=== PATIENT | male | born 1950 | race Caucasian/White ===

== ENCOUNTER 2017-04-15 09:38 | Emergency (ER) | payer OTHER, MEDICARE ==
[2017-04-15 10:05] LABS: #Eosinphils 0.1 thou/uL (0.0-0.7); #Lymphocytes 1.2 thou/uL (1.20-3.40); #Monocytes 0.7 thou/uL (0.11-0.59); %Basophils 0.2 % (0.0-1.0); %Eosinophils 0.4 % (0.0-10.0); %Lymphocytes 9.9 % (21.0-51.0); %Monocytes 5.6 % (0.0-10.0); Hematocrit 50.2 % (42.0-52.0); Mean Platelet Volume 7.1 fL (7.4-10.4); Red Blood Cell (RBC) Count 5.29 mill/uL (4.70-6.10)
[2017-04-15 10:29] LABS: ALT (SGPT) 240 U/L (8-55); AST (SGOT) 335 U/L (5-34); Alkaline Phosphatase 82 U/L (40-150); Anion Gap 18 mmol/L (10-20); BUN (Urea Nitrogen) 20 mg/dL (8.4-25.7); CK (CPK) 67 U/L (30-200); Calc. Creatinine Clearance 0 mL/min (70-130); Calcium 9.6 mg/dL (7.8-10.44); Carbon Dioxide 24 mmol/L (23-31); Chloride 100 mmol/L (98-107); Estimated GFR-MDRD 77; Globulin 3.9 g/dL (2.4-3.5); Protein, Total 8.2 g/dL (5.8-8.1)
[2017-04-15 10:34] LABS: Troponin I Less than 0.010 ng/mL (< 0.028)
--- NOTE | 2017-04-15 10:40 | RAD ---
CHEST 1 VIEW: HISTORY: A 66-year-old male with right-sided chest pain which began this morning. FINDINGS: Extensive bilateral pleural calcified plaques with some pleural thickening. Heart size is within up per range of normal limits. There is some blunting of both costophrenic angles which may just be re lated to the chronic pleural changes. No confluent pneumonia or overt edema. Arthrosis changes of both shoulders, particularly the left. IMPRESSION: Significant bilateral pleural thickening and pleural calcification changes. No pneumonia, edema, or other acute process. POS: [facility]
[2017-04-15] MEDS ORDERED: Ondansetron HCl/PF 4 MG/2 ML Vial ONE (10:41)
[2017-04-15] MEDS ORDERED: Morphine 10 MG/ML VIAL ONE (10:42)
[2017-04-15 11:08] LABS: Lactic Acid - Sepsis 2.4 mmol/L (0.5-2.2)
[2017-04-15] MEDS ORDERED: hydrALAZINE 20 MG/ML VIAL ONE (12:57)
--- NOTE | 2017-04-15 13:05 | CT ---
CT OF THE ABDOMEN AND PELVIS WITH CONTRAST: COMPARISON: None. HISTORY: Right-sided abdominal pain radiating to the right anterior chest. Dyspnea on exertion. TECHNIQUE: Multiple contiguous axial images were obtained in a CT of the abdomen and pelvis with contrast. P.o . contrast was administered. Coronal reformats were performed. FINDINGS: There is hyperdense material in the gallbladder neck which could potentially represent gallstones. The gallbladder is distended without stranding changes surrounding the gallbladder. No free air, fr ee fluid, or stranding changes are seen in the abdomen or pelvis. The liver, kidneys, adrenal glands, spleen, and pancreas are unremarkable. There are scattered dive rticula in the colon. The small bowel and appendix are unremarkable. No abdominal or pelvic lymphadenopathy are seen. Atherosclerotic calcifications are seen in the aor ta. Degenerative changes are seen in the spine. There are calcified bilateral pleural plaques in the abad ng bases which are likely secondary to prior asbestos exposure. IMPRESSION: 1. Distended gallbladder with hyperdense material in the gallbladder neck. This could represent ga llstones. A right upper quadrant ultrasound is recommended if patient has elevated liver function t ests. 2. Diverticulosis. 3. 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 POS: [facility]
--- NOTE | 2017-04-15 14:50 | ULT ---
GALLBLADDER ULTRASOUND: History: Elevated LFTs and right sided abdominal pain. FINDINGS: There is course increased liver echogenicity, evidence for fatty change, with minimal hepatomegaly. Several gallstones are noted with shadow and are mobile. No gallbladder wall thickening. Common bile duct is 0.5 cm. Visualized pancreas and right kidney are unremarkable. IMPRESSION: Multiple cholelithiasis without ductal dilatation. Coarse increased liver echogenicity evidence for fatty change. POS: [facility]
[2017-04-15] MEDS ORDERED: Iopamidol 300 61% 50 ML VIAL FS ONE (16:05)
[2017-04-15] MEDS ORDERED: ISOVUE-370 76%-LOCM 1 ML ONE (16:06)
--- NOTE | 2017-06-02 12:33 | EKG ---
Test Reason : Blood Pressure : / mmHG Vent. Rate : 069 BPM Atrial Rate : 069 BPM P-R Int : 220 ms QRS Dur : 092 ms QT Int : 432 ms P-R-T Axes : 098 031 027 degrees QTc Int : 462 ms Sinus rhythm with 1st degree A-V block Nospecific ST-T segment abnormalities Otherwise normal ECG Confirmed by JUNE GUERIN ([id number]), book or script editor GOPAL SHANNON ([id number] on 06/02/2017 12:32:41 PM Referred By: Confirmed By:JUNE GUERIN
== END 2017-04-15 15:25 | disposition home or self-care (01) ==
LOC: ERS 09:38
DX: B18.2 Chronic viral hepatitis C (principal); K80.50 Calculus of bile duct without cholangitis or cholecystitis without obstruction; E78.5 Hyperlipidemia, unspecified; I10 Essential (primary) hypertension; K21.9 Gastro-esophageal reflux disease without esophagitis; Z87.891 Personal history of nicotine dependence; Z79.82 Long term (current) use of aspirin; Z79.899 Other long term (current) drug therapy
CPT/HCPCS: 36415; 71010; 74177; 76705; 80053; 82550; 82553; 83605; 83690; 84484; 85025; 93005; 94760; 96361; 96374; 96375; J0360; J2270; J2405

== ENCOUNTER 2017-04-17 12:50 | Inpatient (IN) | payer OTHER, MEDICARE ==
[2017-04-17] MEDS ORDERED: Ondansetron HCl/PF 4 MG/2 ML Vial IVP PRN (13:40)
[2017-04-17] MEDS ORDERED: Morphine 10 MG/ML VIAL SLOW IVP PRN (13:44)
[2017-04-17 14:20] VITALS: BMI 31.3
[2017-04-17] MEDS: Pantoprazole 40 MG VIAL IVP SCH (14:34)
[2017-04-17] MEDS: D5 1/2 NS w/20 mEq KCL 1,000 ML IV SCH ×2 (14:35→23:49)
--- NOTE | 2017-04-17 17:01 | CON ---
DATE OF CONSULTATION: 04/17/2017 REQUESTING PHYSICIAN: Carlos Walker M.D. REASON FOR CONSULTATION: Obstructive jaundice. HISTORY OF PRESENT ILLNESS: Manas Blue is a 66-year-old gentleman seen by my GI colleague, Dr. Po Winchester. He has a known history of chronic hepatitis C genotype 2 B with no prior treatment, evidentl y had a liver biopsy back in 2003 showing only stage I fibrosis. Over the past 3 days, the patient has had waxing and waning often severe pain in the right upper quadrant associated with nausea and v omiting. He went to the emergency department a couple of days ago and was found to have some LFT el evation with AST 335, ALT 240, and total bilirubin 2.0. Ultrasound at that time showed cholelithias is, but normal common bile duct of [address] scan showed distended gallbladder with stones in th e neck of the gallbladder. He was seen yesterday in our clinic by our Physician Mop Maker and due t o the elevated LFTs and ultrasound findings, was referred to General Surgery. He met Dr. Walker to day, quite symptomatic this morning having vomiting and worsening abdominal pain. Repeat labs today showed marked interval increase in total bilirubin all the way up to 10.1 with AST going up to 290. He was therefore admitted to the hospital with plan for cholecystectomy. We are consulted for con sideration of preoperative ERCP, given the high likelihood of common bile duct stone. Currently, th e patient is feeling a bit better, no vomiting since this morning. Pain is fairly well controlled w ith morphine. REVIEW OF SYSTEMS: Full review of systems including constitutional, head, eyes, ears, nose, throat, GI, , cardiovascular, respiratory, musculoskeletal, and neurologic systems is negative except as noted in the HPI. PAST MEDICAL HISTORY: Hepatitis C genotype 2 B. No prior treatment, hypertension, hyperlipidemia, and arthritis. ALLERGIES: No known drug allergies. OUTPATIENT MEDICATIONS: Amlodipine, hydrochlorothiazide, bisoprolol. INPATIENT MEDICATIONS: Zosyn IV, morphine p.r.n., Zofran p.r.n., Protonix 40 mg IV daily. SOCIAL HISTORY: The patient is a former smoker. He does drink beer heavily about a 12 pack per wee k. No drug use. FAMILY HISTORY: Noncontributory. PHYSICAL EXAMINATION: VITAL SIGNS: Temperature 98.1, pulse 61, blood pressure 161/71, 98% oxygen saturation on room air. GENERAL: A 66-year-old gentleman lying in bed comfortably in no acute distress. SKIN: He has some mild jaundice, no rash visible or palpable. EYES: Mild scleral icterus. Extraocular movements intact. ENT: Mucous membranes moist, no oral lesions. LYMPH: No submandibular, supraclavicular lymphadenopathy. THYROID: Nontender to palpation. HEART: Regular rate and rhythm. LUNGS: Clear to auscultation bilaterally. ABDOMEN: Bowel sounds present, soft, some tenderness to palpation in the right upper quadrant. No guarding or rebound tenderness. EXTREMITIES: No peripheral edema. VESSELS: Radial pulses 2+ bilaterally. NEUROLOGICAL: Cranial nerves II-XII intact bilaterally. No focal deficits. LABORATORY STUDIES: Total bilirubin up to 10.1, up from 2.0 just 2 days ago. Alkaline phosphatase 105, AST 105, ALT 290 up from 240 two days ago. Albumin 4.0, lactic acid 1.8, lipase 16. WBC 12, h emoglobin 17.3, platelets 224. IMAGING STUDIES: Abdominal ultrasound from 2 days ago showed cholelithiasis with common bile duct 5 mm. No gallbladder wall thickening. CT of the abdomen and pelvis also 2 days ago demonstrated dis tended gallbladder with what appeared to be gallstones in the gallbladder neck. ASSESSMENT AND PLAN: 1. Obstructive jaundice. 2. Cholelithiasis. 3. Right upper quadrant pain. The patient's sudden interval increase in total bilirubin and charac teristic symptoms yield a high likelihood for common bile duct stone. Cholecystectomy is planned. Preoperative ERCP is certainly reasonable to clear the common bile duct prior to surgery. Currently , the patient's symptoms are well controlled. We will plan on ERCP tomorrow. I discussed the proce dure including risks and benefits in detail with the patient, including risk of post-ERCP pancreatit is. The patient desires to proceed. Thank you for the consultation. Please call with questions or concerns.
[2017-04-17] MEDS: Piperacillin/Tazobactam 3.375 GM, Admixture Fee 1 EACH in Sodium Chloride 0.9% 100 ML IVPB SCH ×2 (18:57→23:49)
[2017-04-17] MEDS: Morphine PF 1 MG/ML SYR IVP PRN (21:30)
--- NOTE | 2017-04-18 03:24 | HP ---
CHIEF COMPLAINT: Abdominal pain. HISTORY OF PRESENT ILLNESS: Mr. 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 He has been followed by Dr. Po Winchester for the past 20 years for hepatitis C, which is clinically quiescent. He has no history of cirrhosis or liver failure. He had sudden onset of severe right upper quadrant pain radiating to his back and also to the left upper quadrant early Sunday morning. This pain has brought him into the emergency room as well as his doctor's offices without ever completely resolving. He states that the pain has gotten somewhat better, but he has episodes where the amount of pain increases rather dramatically. He went to see Dr. Winchester 2 days ago and had labs drawn at which point he was noted to have increased LFTs. Repeat labs were ordered for today and these have increased further. The patient denies nausea or vomiting. He cannot identify anything which makes the pain better or worse. It seems to come and go independent of eating, activity, position, or time of day. He has not had much of an appetite since the onset of his symptoms, which is quite atypical. He denies any fevers or chills. An ultrasound done in the emergency room was positive for gallstones , but no ductal dilatation was noted. He did have coarse echotexture to his liver suggestive of fatty change. A CT scan was also done on the and this did not show any overt signs of cirrhosis and there was no stranding around the gallbladder, although it was noted to be distended. PAST MEDICAL HISTORY: Hepatitis C, untreated for over 20 years. He also has a history of gastric ulcers and ongoing alcohol use of 2 or 3 beers per day, and hypertension. PAST SURGICAL HISTORY: He has had some orthopedic surgeries, but no abdominal operations. SOCIAL HISTORY: The patient used to chew, but has never smoked tobacco. He has not had any illicit drug use, but does continue to drink alcohol. OUTPATIENT MEDICATIONS: Include bisoprolol/hydrochlorothiazide 10/6.25 mg p.o. daily, amlodipine 5 mg p.o. daily, pantoprazole 40 mg p.o. daily, aspirin daily , and hydrochlorothiazide 12.5 mg p.o. daily. REVIEW OF SYSTEMS: Ten system review of systems is negative except per HPI and the following. The patient does report that his stools have been black in color and his urine has been dark yellow, but seems a little boxer operator in color today. PHYSICAL EXAMINATION: GENERAL: The patient is in no acute distress. He is not flushed or toxic in appearance. He does have notable jaundice and icterus. HEENT: Unremarkable. NECK: Supple, without lymphadenopathy or thyroid nodules. HEART: Regular in its rate and rhythm without murmurs, rubs or gallops. LUNGS: Clear to auscultation bilaterally. ABDOMEN: Soft and nondistended. He is mildly tender to palpation in the right lower quadrant, but quite tender to palpation in the right upper quadrant. He does not exhibit rigidity, rebound or guarding, no palpable masses or hernias. He does have a reducible umbilical hernia. No fluid wave or abdominal distention. EXTREMITIES: Warm and well perfused. He has minimal ankle edema. NEUROLOGIC: No focal deficits. PSYCHIATRIC: Alert, oriented, and appropriate. SKIN: Multiple actinic keratoses on his forearms. LABORATORY DATA: His bilirubin was 2 on the 12th and has gone up to 10 today. AST and ALT are mildly elevated at 105 and 390, which was not too different than on the 12th. CBC was not repeated today, but his white count was mildly elevated on the 12th at 12 with a left shift. His hematocrit at that time was 50. ASSESSMENT: Cholelithiasis and likely choledocholithiasis. The patient has rapidly rising bilirubin and development of jaundice and icterus with abdominal pain and gallstones, which is very suggestive of an obstructed common bile duct. He does have a history of hepatitis C, but no history of cirrhosis. I have ordered repeat labs for the morning including coags and I have discussed this case with Gastroenterology. I feel that he requires an ERCP and after that can proceed with laparoscopic cholecystectomy. I am starting him on some prophylactic antibiotics given his bile duct obstruction and right upper quadrant tenderness. He does not clinically have any evidence of cholangitis. I discussed the patient's diagnosis and recommended treatment plan with him and his and they are in agreement with this. All their questions were answered. The inherent risks of laparoscopic cholecystectomy were discussed. These include but are not limited to bleeding, infection, risks of anesthesia, damage to nearby structures including bowel, liver and bile duct, need for additional procedures, and need for open surgery. They understands and accept these risks and wishes to proceed. We also briefly went over the procedure ERCP and its inherent risks and they are in agreement with this as well. I have written orders to the hospital with medications for pain, nausea, and prophylactic antibiotics. He will be made n.p.o., but I will likely continue his home medications for the most part, keeping an eye on his blood pressure. LUCINDA
[2017-04-18] MEDS: Piperacillin/Tazobactam 3.375 GM, Admixture Fee 1 EACH in Sodium Chloride 0.9% 100 ML IVPB SCH ×4 (05:06→23:32)
[2017-04-18 05:29] LABS: PTT 25.2 SEC (22.9-36.1)
[2017-04-18 05:48] LABS: Hematocrit 46.1 % (42.0-52.0); Mean Platelet Volume 7.4 fL (7.4-10.4); Neutrophil 67 % (42-75); Reactive Lymphocytes 1 % (0-10); Red Blood Cell (RBC) Count 4.71 mill/uL (4.70-6.10); White Blood Cell (WBC) Count 5.8 thou/uL (4.8-10.8)
[2017-04-18 05:57] LABS: ALT (SGPT) 206 U/L (8-55); AST (SGOT) 76 U/L (5-34); Alkaline Phosphatase 84 U/L (40-150); Anion Gap 11 mmol/L (10-20); BUN (Urea Nitrogen) 11 mg/dL (8.4-25.7); Bilirubin, Total 4.8 mg/dL (0.2-1.2); Calc. Creatinine Clearance 111 mL/min (70-130); Calcium 9.1 mg/dL (7.8-10.44); Carbon Dioxide 27 mmol/L (23-31); Chloride 102 mmol/L (98-107); Estimated GFR-MDRD 90; Globulin 3.5 g/dL (2.4-3.5); Lipase 5 U/L (8-78); Protein, Total 7.2 g/dL (5.8-8.1)
[2017-04-18] MEDS: Bisoprolol Fumarate/HCTZ 10 mg/6.25 mg Tablet PO SCH (06:48)
[2017-04-18] MEDS: D5 1/2 NS w/20 mEq KCL 1,000 ML IV SCH ×3 (06:49→23:32)
[2017-04-18] MEDS ORDERED: Fentanyl 100 MCG/2 ML VIAL ONE ×4 (13:37→14:31)
[2017-04-18] MEDS ORDERED: Iothalamate Meglumine 60% 50 ML VIAL FS ONE (14:23)
[2017-04-18] MEDS ORDERED: Midazolam HCl 2 mg/2 ml Vial ONE (14:31)
[2017-04-18] MEDS ORDERED: Ondansetron HCl/PF 4 MG/2 ML Vial ONE (14:49)
[2017-04-18] MEDS ORDERED: ePHEDrine/0.9% NaCl/PF SYRINGE 50 mg/10 ml ONE (14:49)
[2017-04-18] MEDS ORDERED: Succinylcholine Chloride 20 MG/ML 10 ml SYRINGE FS ONE (14:49)
[2017-04-18] MEDS ORDERED: Lidocaine 1% PF 5 ML VIAL ONE (14:49)
[2017-04-18] MEDS ORDERED: Propofol 200 MG/20 ML VIAL ONE (14:49)
[2017-04-18] MEDS ORDERED: Dexamethasone 20 MG/5 ML VIAL ONE (14:49)
[2017-04-18] MEDS: Pantoprazole 40 MG VIAL IVP SCH (15:04)
--- NOTE | 2017-04-18 15:45 | RAD ---
ERCP: COMPARISON: Gallbladder/right upper quadrant from 04/15/2017. FINDINGS: A single image of the abdomen demonstrates canalization of the common bile duct with partial filling of the common bile duct. The intrahepatic biliary system is not visible on this single exam. No def inite filling defect is seen on this examination. There is likely visualization of the balloon in th e distal common bile duct. POS: [facility]
[2017-04-18] MEDS: Morphine PF 1 MG/ML SYR IVP PRN ×2 (17:29→19:15)
--- NOTE | 2017-04-18 17:29 | OP ---
PREOPERATIVE DIAGNOSIS: Obstructive jaundice. PROCEDURE: After informed consent was obtained, the patient placed in the left lateral decubitus pos ition. Anesthesia was administered per the Anesthesia Department. Side-viewing endoscope was insert ed into the esophagus under direct visualization with ease and passed to the second portion of the du odenum with ease. Second portion of the duodenum was normal. The duodenal bulb was normal. No muco ade abnormalities were noted. A taper tip papillotome was inserted in the common doubt bile duct and there is small filling defect was noted. A sphincterotomy was performed and a 9 mm balloon and 12 m m balloon were used to sweep the duct. Occlusion cholangiogram revealed no filling defects. ASSESSMENT: Choledocholithiasis - status post sphincterotomy and stone extraction. RECOMMENDATIONS: Repeat LFTs.
[2017-04-18] MEDS ORDERED: MORPHINE 10 MG/ML SYRINGE IV PRN (17:37)
[2017-04-19 05:08] LABS: #Lymphocytes 1.1 thou/uL (1.20-3.40); #Monocytes 0.5 thou/uL (0.11-0.59); #Neutrophils 6.8 thou/uL (1.40-6.50); %Basophils 0.2 % (0.0-1.0); %Eosinophils 0.1 % (0.0-10.0); %Lymphocytes 13.3 % (21.0-51.0); %Monocytes 6.2 % (0.0-10.0); Hematocrit 46.2 % (42.0-52.0); Mean Platelet Volume 7.5 fL (7.4-10.4); Red Blood Cell (RBC) Count 4.76 mill/uL (4.70-6.10); White Blood Cell (WBC) Count 8.5 thou/uL (4.8-10.8)
[2017-04-19 05:20] LABS: ALT (SGPT) 196 U/L (8-55); AST (SGOT) 86 U/L (5-34); Alkaline Phosphatase 84 U/L (40-150); Anion Gap 10 mmol/L (10-20); BUN (Urea Nitrogen) 9 mg/dL (8.4-25.7); Bilirubin, Total 4.3 mg/dL (0.2-1.2); Calc. Creatinine Clearance 117 mL/min (70-130); Calcium 9.2 mg/dL (7.8-10.44); Carbon Dioxide 25 mmol/L (23-31); Chloride 104 mmol/L (98-107); Estimated GFR-MDRD Greater than 90; Globulin 3.4 g/dL (2.4-3.5); Lipase 9 U/L (8-78); Protein, Total 7.1 g/dL (5.8-8.1)
[2017-04-19] MEDS: Piperacillin/Tazobactam 3.375 GM, Admixture Fee 1 EACH in Sodium Chloride 0.9% 100 ML IVPB SCH ×2 (05:51→14:12)
[2017-04-19] MEDS: D5 1/2 NS w/20 mEq KCL 1,000 ML IV SCH (05:51)
[2017-04-19 08:48] VITALS: TEMP 98.4
[2017-04-19] MEDS: Bisoprolol Fumarate/HCTZ 10 mg/6.25 mg Tablet PO SCH (09:19)
[2017-04-19] MEDS ORDERED: Bupivacaine/Epinephrine 0.25% 30 ML VIAL ONE (10:20)
[2017-04-19] MEDS ORDERED: Fentanyl 100 MCG/2 ML VIAL ONE (10:22)
[2017-04-19] MEDS ORDERED: Propofol 200 MG/20 ML VIAL ONE (10:45)
[2017-04-19] MEDS ORDERED: Lidocaine 1% PF 5 ML VIAL ONE (10:45)
[2017-04-19] MEDS ORDERED: Metoclopramide HCl 10 MG/2 ML VIAL ONE (10:45)
[2017-04-19] MEDS ORDERED: Glycopyrrolate 0.2 MG/ML 5 ML SYRINGE ONE (10:45)
[2017-04-19] MEDS ORDERED: Ketorolac Tromethamine 30 MG/ML VIAL ONE (10:45)
[2017-04-19] MEDS ORDERED: ePHEDrine/0.9% NaCl/PF SYRINGE 50 mg/10 ml ONE (10:45)
[2017-04-19] MEDS ORDERED: Dexamethasone 20 MG/5 ML VIAL ONE (10:45)
[2017-04-19] MEDS ORDERED: Ondansetron HCl/PF 4 MG/2 ML Vial ONE (10:45)
[2017-04-19] MEDS ORDERED: diphenhydrAMINE 50 MG/ML VIAL ONE (10:45)
[2017-04-19] MEDS ORDERED: Promethazine HCl 25 MG/ML VIAL SLOW IVP PRN (13:09)
[2017-04-19] MEDS ORDERED: Ondansetron HCl/PF 4 MG/2 ML Vial IVP PRN (13:09)
[2017-04-19] MEDS ORDERED: Promethazine HCl 25 MG/ML VIAL IM PRN (13:09)
[2017-04-19] MEDS ORDERED: traMADol HCl 50 MG TAB PO PRN ×2 (14:31)
[2017-04-19] MEDS ORDERED: HYDROcodone/Acetaminophen 10/325 mg Tablet PO PRN ×2 (14:32)
[2017-04-19] MEDS: Pantoprazole 40 MG VIAL IVP SCH (14:37)
[2017-04-19 16:34] VITALS: BP 178/78
--- NOTE | 2017-04-20 13:38 | DIS ---
DATE OF ADMISSION: 04/17/2017 DATE OF DISCHARGE: 04/19/2017 PROCEDURES: ERCP by Dr. Cardona on 04/18/2017 and laparoscopic cholecystectomy with liver biopsy and re pair of umbilical hernia on 04/19/2017. FINAL DIAGNOSES: 1. Hepatitis C. 2. Choledocholithiasis. 3. Chronic cholecystitis and cholelithiasis. 4. Umbilical hernia. HISTORY: Mr. Blue is a 66-year-old man with longstanding hepatitis C who presented to his gastroente rologist with acute onset of right upper quadrant pain, nausea, and vomiting. He was found to have g allstones on ultrasound and was referred to General Surgery. On the day that I saw him, he was noted to have very elevated LFTs, so I admitted him to the hospital with Gastroenterology consultation for ERCP. He underwent ERCP without event and the following day underwent laparoscopic cholecystectomy. Due to his longstanding history of hepatitis C and an enlarged liver, a liver biopsy was also done and he also underwent incidental repair of an umbilical hernia. Postoperatively, he recovered well a nd was discharged home later that same day. He is to follow up in the General Surgery Clinic in 2 we eks' time. He was instructed to avoid heavy lifting for 2 weeks and to stay on a low fat diet. Alco hol cessation was also recommended.
--- NOTE | 2017-04-20 22:18 | PDOC.OP ---
Operative Note - Operative Note Operative Note: PROCEDURE: Laparoscopic cholecystectomy and liver biopsy and repair of umbilical hernia SURGEON: Carlos Walker M.D. DATE OF PROCEDURE: 04/19/2017 PREOPERATIVE DIAGNOSIS: Cholelithiasis and cholecystitis and umbilical hernia, history of hepatitis C POSTOPERATIVE DIAGNOSIS: Cholelithiasis and cholecystitis and umbilical hernia, history of hepatitis C HISTORY: Patient presented with obstructive jaundice and gallstones on ultrasound. He underwent ERCP and stone extraction on 04/18/2017 with improvement in his abdominal pain and now presents for laparoscopic cholecystectomy. FINDINGS: White walled gallbladder. Enlarged and stiff liver which was difficult to retract necessitating use of the 30 degree port. Very small umbilical fascial defect containing preperitoneal fat only. PROCEDURE IN DETAIL: After informed consent was obtained and appropriate preoperative antibiotics were administered, the patient was taken to the operating room and placed in the supine position and general endotracheal anesthesia was administered. The stomach was decompressed with an OG tube and the abdomen was prepped and draped in standard sterile fashion. Local anesthesia was infused to the skin and subcutaneous tissues at the umbilical level. A transverse skin incision was made. Dissection was carried down to the umbilical hernia which was dissected free of the overlying skin and surrounding soft tissues. This was traced down to the fascial defect which was under a centimeter in size. The hernia contained preperitoneal fat only which was excised and discarded. A 5 mm trocar was placed through the fascial defect into the abdominal cavity and carbon dioxide gas insufflated to an intra- abdominal pressure of 15 which the patient tolerated well. The abdominal cavity was carefully examined. There was no evidence of trocar injury. Local anesthesia was infused to the skin and subcutaneous tissues at the epigastric, right upper quadrant, and right lateral abdominal sites and trocars were placed under direct vision of the laparoscope. The fundus of the gallbladder was grasped and retracted superiorly but due to the stiff and enlarged liver the infundibulum could not be adequately visualized. A 30 degree scope was obtained with improved visualization of this area.. The infundibulum was grasped and retracted laterally. The serosa was stripped inferiorly at the level of the neck of the gallbladder exposing the cystic duct and artery which were traced clearly to their insertion in the gallbladder. Critical view of safety was obtained and the cystic duct and artery were clipped and divided between clips. The gallbladder was then dissected free of the gallbladder bed using hook electrocautery. Prior to complete removal of the gallbladder from the gallbladder bed, the area of the cystic duct and artery stumps was examined. The clips were in good position completely across these structures and there was no bleeding and no leakage of bile. The gallbladder was then placed into an EndoCatch bag and drawn out through the epigastric incision. The epigastric trocar was replaced and the operative site easily irrigated to clear. There was no significant bleeding or spillage of bile. A wedge biopsy of the edge of the liver was then performed using laparoscopic sutures and the biopsy site cauterized and hemostasis verified. The epigastric trocar was removed and the fascia closed under direct laparoscopic vision with a 0 Vicryl suture on a GraNee needle in a [id number] manner with excellent technical result. The right upper quadrant and right lateral abdominal trocars were removed and hemostasis verified. Carbon dioxide gas was allowed to desufflate through the umbilical trocar which was then removed. The umbilical fascia was closed under direct vision with 0 Vicryl sutures with excellent technical result. Additional local anesthesia was infused for postoperative pain management. The skin incisions were closed with 4-0 subcuticular Monocryl sutures and Dermabond dressings were placed. The patient was extubated and taken to the recovery room in good condition. There were no complications. ESTIMATED BLOOD LOSS: Minimal. SPECIMEN : Gallbladder and contents, liver biopsy.
== END 2017-04-19 15:33 | disposition home or self-care (01) | DRG 418 ==
LOC: 3SE 12:50
PROVIDERS: ADMIT Surgery; ATTEND Surgery
PROC: 0F798ZZ Dilation of Common Bile Duct, Via Natural or Artificial Opening Endoscopic (ICD-10-PCS; principal; 2017-04-18)
PROC: 0FC98ZZ Extirpation of Matter from Common Bile Duct, Via Natural or Artificial Opening Endoscopic (ICD-10-PCS; 2017-04-18)
PROC: 0FT44ZZ Resection of Gallbladder, Percutaneous Endoscopic Approach (ICD-10-PCS; 2017-04-19)
PROC: 0WQF0ZZ Repair Abdominal Wall, Open Approach (ICD-10-PCS; 2017-04-19)
PROC: 0FB04ZX Excision of Liver, Percutaneous Endoscopic Approach, Diagnostic (ICD-10-PCS; 2017-04-19)
DX: K80.70 Calculus of gallbladder and bile duct without cholecystitis without obstruction (principal); K80.18 Calculus of gallbladder with other cholecystitis without obstruction; I10 Essential (primary) hypertension; K80.71 Calculus of gallbladder and bile duct without cholecystitis with obstruction; B19.20 Unspecified viral hepatitis C without hepatic coma; F10.10 Alcohol abuse, uncomplicated; E78.5 Hyperlipidemia, unspecified; M19.90 Unspecified osteoarthritis, unspecified site; Z87.891 Personal history of nicotine dependence; K42.9 Umbilical hernia without obstruction or gangrene
CPT/HCPCS: 36415; 71010; 74177; 74330; 76705; 80053; 82550; 82553; 83605; 83690; 84484; 85007; 85025; 85027; 85610; 85730; 88304; 88307; 88313; 93005; 94760; 96361; 96374; 96375; A4216; C9113; J0131; J0360; J1100; J1200; J1885; J2001; J2250; J2270; J2274; J2405; J2543; J2704; J2765; J3010; J7050; Q9961

== ENCOUNTER 2020-10-29 14:49 | Outpatient (CLI) | payer MEDICARE | END 2020-10-29 14:50 | disposition home or self-care (01) | LOC: BICCT 14:49 | PROVIDERS: ATTEND Surgery | DX: M48.02 Spinal stenosis, cervical region (principal); M47.812 Spondylosis without myelopathy or radiculopathy, cervical region; M25.78 Osteophyte, vertebrae | CPT/HCPCS: 72050; 72125 ==

== ENCOUNTER 2021-03-30 09:47 | Emergency (ER) | payer OTHER, MEDICARE ==
[2021-03-30] MEDS ORDERED: Ketorolac Tromethamine 30 MG/ML VIAL ONE (11:40)
== END 2021-03-30 12:38 | disposition home or self-care (01) ==
LOC: ERS 09:47
DX: S42.212A Unspecified displaced fracture of surgical neck of left humerus, initial encounter for closed fracture (principal); I10 Essential (primary) hypertension; E78.5 Hyperlipidemia, unspecified; K21.9 Gastro-esophageal reflux disease without esophagitis; W01.198A Fall on same level from slipping, tripping and stumbling with subsequent striking against other object, initial encounter; Z87.891 Personal history of nicotine dependence; Z87.19 Personal history of other diseases of the digestive system
CPT/HCPCS: 23600; 96372; J1885

== ENCOUNTER 2021-04-19 10:43 | Outpatient (CLI) | payer MEDICARE | END 2021-04-19 10:44 | disposition home or self-care (01) | LOC: BICRAD 10:43 | PROVIDERS: ATTEND Family Medicine | DX: J61 Pneumoconiosis due to asbestos and other mineral fibers (principal); S42.302A Unspecified fracture of shaft of humerus, left arm, initial encounter for closed fracture | CPT/HCPCS: 71046 ==

== ENCOUNTER 2021-04-29 10:33 | Emergency (ER) | payer MEDICARE | END 2021-04-29 12:39 | disposition home or self-care (01) | LOC: ERS 10:33 | DX: Z48.00 Encounter for change or removal of nonsurgical wound dressing (principal); I10 Essential (primary) hypertension; E78.5 Hyperlipidemia, unspecified; K21.9 Gastro-esophageal reflux disease without esophagitis; Z79.891 Long term (current) use of opiate analgesic; Z79.82 Long term (current) use of aspirin; Z79.899 Other long term (current) drug therapy ==

== ENCOUNTER 2021-05-04 11:02 | Inpatient (IN) | payer MEDICARE, OTHER ==
[2021-05-04] MEDS ORDERED: Morphine 4 MG/ML VIAL ONE (12:41)
[2021-05-04] MEDS ORDERED: Ondansetron PF 4 MG/2 ML Vial ONE (12:42)
[2021-05-04 12:53] LABS: #Lymphocytes 1.5 thou/uL (1.20-3.40); #Monocytes 1.6 thou/uL (0.11-0.59); #Neutrophils 10.6 thou/uL (1.40-6.50); %Basophils 0.3 % (0.0-1.0); %Eosinophils 0.1 % (0.0-10.0); %Lymphocytes 11.2 % (21.0-51.0); %Monocytes 11.5 % (0.0-10.0); %Neutrophils 76.9 % (42.0-75.0); Hemoglobin 15.4 g/dL (14.0-18.0); Mean Corpuscular HGB CONC 33.8 g/dL (32.0-36.0); Mean Corpuscular Hemoglobin 32.2 pg (27.0-31.0); Mean Corpuscular Volume 95.4 fL (78.0-98.0); Mean Platelet Volume 7.3 fL (7.4-10.4); Platelet Count 270 thou/uL (130-400); RBC Distribution Width 11.3 % (11.5-14.5); Red Blood Cell (RBC) Count 4.78 mill/uL (4.70-6.10); White Blood Cell (WBC) Count 13.8 thou/uL (4.8-10.8)
[2021-05-04 13:21] LABS: SARS-CoV-2 NAA Rapid Test Not Detected (NotDetected)
[2021-05-04 13:24] LABS: Bacteria/HPF None Seen HPF (None Seen); Bilirubin 1+ (Negative); Blood, Urine Negative (Negative); Clarity Clear (Clear); Glucose, Urine (Dipstick) 100 mg/dL (Negative); Ketone, Urine 60 mg/dL (Negative); Leukocyte Negative Leu/uL (Negative); Nitrite Negative (Negative); Protein, Urine (Dipstick) 30 mg/dL (Neg-Trace); RBC/HPF 0-3 HPF (0-3); Specific Gravity, Urine 1.027 (1.002-1.036); Squamous Epithelial 0-3 HPF (0-3); Urobilinogen Greater than 12 mg/dL (Less than 2); WBC/HPF 0-3 HPF (0-3); pH, Urine 6.5 (5.0-9.0)
[2021-05-04] MEDS ORDERED: Cefepime 2 GM VIAL ONE (13:59)
[2021-05-04 14:00] LABS: ALT (SGPT) 33 U/L (8-55); AST (SGOT) 37 U/L (5-34); Albumin 3.5 g/dL (3.4-4.8); Alkaline Phosphatase 79 U/L (40-110); Anion Gap 18 mmol/L (10-20); BUN (Urea Nitrogen) 19 mg/dL (8.4-25.7); Bilirubin, Total 2.1 mg/dL (0.2-1.2); Calc. Creatinine Clearance 0 mL/min (70-130); Calcium 10.3 mg/dL (7.8-10.44); Carbon Dioxide 23 mmol/L (23-31); Chloride 97 mmol/L (98-107); Globulin 4.3 g/dL (2.4-3.5); Glucose 107 mg/dL (83-110); Potassium 4.1 mmol/L (3.5-5.1); Protein, Total 7.8 g/dL (5.8-8.1); Sodium 134 mmol/L (136-145)
[2021-05-04] MEDS ORDERED: VANCOMYCIN 2 GRAM/400 ML BAG 2 GM in Premix Bag 1 BAG IVPB SCH (14:30)
[2021-05-04] MEDS ORDERED: Ondansetron ODT 4 MG TAB PO PRN (16:01)
[2021-05-04] MEDS ORDERED: Senokot S 8.6-50 MG TAB PO PRN (16:01)
[2021-05-04] MEDS ORDERED: Ondansetron PF 4 MG/2 ML Vial IVP PRN (16:01)
[2021-05-04 16:11] LABS: Bilirubin, Direct 1.2 mg/dL (0.1-0.3); Bilirubin, Total 1.8 mg/dL (0.2-1.2)
[2021-05-04] MEDS ORDERED: Vancomycin 1 GM in Premix Bag 1 BAG IVPB SCH (16:15)
[2021-05-04 16:54] VITALS: BMI 28.5
[2021-05-04] MEDS: Sodium Chloride 0.9% 1,000 ML IV SCH (17:00)
[2021-05-04 17:24] LABS: INR-International Normal Ratio 1.2; Prothrombin Time 14.9 sec (12.0-14.7)
[2021-05-04] MEDS ORDERED: Lidocaine 1% (PF) 30 ML VIAL ONE (17:56)
[2021-05-04 19:19] LABS: Synovial Fluid, Protein 4.5 g/dL (Not Available)
[2021-05-04 19:43] LABS: RBC Count-Automated (BF) 340 /cu.mm; WBC/Nucleated-Auto (BF) 28543 /cu.mm
[2021-05-04 19:47] LABS: BF Color Yellow; Body Fluid Source Synovial Fluid; Clarity Cloudy/Turbid (Clear); Tube # EDTA
[2021-05-04 19:50] LABS: BF Segmented Neutrophils 82 %; Cell Count Non Hematic 16 %; Lymphocytes 2 %
[2021-05-04] MEDS: HYDROcodone/Acetaminophen 5/325 mg Tablet PO PRN (20:48)
[2021-05-04] MEDS: Metoprolol Tartrate 25 MG TAB PO SCH (20:48)
[2021-05-05] MEDS: HYDROcodone/Acetaminophen 5/325 mg Tablet PO PRN ×4 (01:21→17:53)
[2021-05-05] MEDS: Sodium Chloride 0.9% 1,000 ML IV SCH (01:22)
[2021-05-05] MEDS ORDERED: VANCOMYCIN 1.25 GM/250 ML BAG 1.25 GM in Premix Bag 1 BAG IVPB SCH (02:00)
[2021-05-05] MEDS ORDERED: Cefepime 2 GM in Sodium Chloride 0.9% 100 ML IVPB SCH (02:00)
[2021-05-05] MEDS ORDERED: Communication Order-Pharmacy FS SCH (07:45)
[2021-05-05 08:17] LABS: #Monocytes 1.5 thou/uL (0.11-0.59); #Neutrophils 8.6 thou/uL (1.40-6.50); %Basophils 0.4 % (0.0-1.0); %Eosinophils 0.2 % (0.0-10.0); %Lymphocytes 16.5 % (21.0-51.0); %Monocytes 12.5 % (0.0-10.0); %Neutrophils 70.4 % (42.0-75.0); Hemoglobin 13.8 g/dL (14.0-18.0); Mean Corpuscular HGB CONC 33.1 g/dL (32.0-36.0); Mean Corpuscular Volume 96.5 fL (78.0-98.0); Mean Platelet Volume 6.8 fL (7.4-10.4); Platelet Count 231 thou/uL (130-400); RBC Distribution Width 11.3 % (11.5-14.5); Red Blood Cell (RBC) Count 4.32 mill/uL (4.70-6.10); White Blood Cell (WBC) Count 12.2 thou/uL (4.8-10.8)
[2021-05-05 08:40] LABS: ALT (SGPT) 33 U/L (8-55); AST (SGOT) 31 U/L (5-34); Alkaline Phosphatase 70 U/L (40-110); Anion Gap 14 mmol/L (10-20); BUN (Urea Nitrogen) 14 mg/dL (8.4-25.7); Bilirubin, Total 1.7 mg/dL (0.2-1.2); Calc. Creatinine Clearance 122 mL/min (70-130); Carbon Dioxide 22 mmol/L (23-31); Chloride 101 mmol/L (98-107); Globulin 3.5 g/dL (2.4-3.5); Glucose 91 mg/dL (83-110); Potassium 3.8 mmol/L (3.5-5.1); Protein, Total 6.5 g/dL (5.8-8.1); Sodium 133 mmol/L (136-145)
[2021-05-05] MEDS: Rosuvastatin 10 MG TAB PO SCH (09:19)
[2021-05-05] MEDS: Amlodipine 5 MG TAB PO SCH (09:19)
[2021-05-05] MEDS: Metoprolol Tartrate 25 MG TAB PO SCH (09:20)
[2021-05-05] MEDS: Aspirin 81 mg Enteric Coated Tablet PO SCH (09:20)
[2021-05-05] MEDS: Enoxaparin Sodium 80 MG/0.8 ML SYRINGE SC SCH ×2 (09:20→20:41)
[2021-05-05 13:23] LABS: ANA Symphony (Qualitative) Negative (Negative); ANA Symphony (Quantitative) 0.3 Ratio (< 0.7 Negative); dsDNA IgG Antibody 2.3 IU/mL (<10 Negative)
[2021-05-05] MEDS ORDERED: Vancomycin HCl 1.25 GM in Sodium Chloride 0.9% 250 ML 250 ML IVPB SCH (14:00)
[2021-05-05] MEDS ORDERED: methylPREDNISolone Sod Succ 40 MG VIAL IVP SCH (14:45)
[2021-05-05] MEDS ORDERED: predniSONE 20 MG TAB PO SCH (14:45)
[2021-05-05] MEDS ORDERED: Metoprolol Tartrate 25 MG TAB PO SCH (16:15)
[2021-05-05] MEDS: Metoprolol Tartrate 50 MG TAB PO SCH (20:41)
[2021-05-05] MEDS: Flecainide 50 MG TAB PO SCH (20:41)
[2021-05-06 02:22] LABS: Vancomycin, Trough 4.6 ug/mL
[2021-05-06 05:04] LABS: #Lymphocytes 0.6 thou/uL (1.20-3.40); #Monocytes 0.4 thou/uL (0.11-0.59); #Neutrophils 8.2 thou/uL (1.40-6.50); %Basophils 0.1 % (0.0-1.0); %Lymphocytes 6.8 % (21.0-51.0); %Monocytes 4.1 % (0.0-10.0); %Neutrophils 89.1 % (42.0-75.0); Hemoglobin 13.4 g/dL (14.0-18.0); Mean Corpuscular HGB CONC 33.5 g/dL (32.0-36.0); Mean Corpuscular Hemoglobin 31.9 pg (27.0-31.0); Mean Corpuscular Volume 95.2 fL (78.0-98.0); Platelet Count 291 thou/uL (130-400); RBC Distribution Width 11.2 % (11.5-14.5); Red Blood Cell (RBC) Count 4.19 mill/uL (4.70-6.10); White Blood Cell (WBC) Count 9.2 thou/uL (4.8-10.8)
[2021-05-06 05:24] LABS: ALT (SGPT) 39 U/L (8-55); AST (SGOT) 39 U/L (5-34); Alkaline Phosphatase 74 U/L (40-110); Anion Gap 16 mmol/L (10-20); BUN (Urea Nitrogen) 15 mg/dL (8.4-25.7); Bilirubin, Total 0.9 mg/dL (0.2-1.2); Calc. Creatinine Clearance 121 mL/min (70-130); Calcium 9.2 mg/dL (7.8-10.44); Carbon Dioxide 24 mmol/L (23-31); Chloride 99 mmol/L (98-107); Globulin 4.5 g/dL (2.4-3.5); Glucose 126 mg/dL (83-110); Potassium 4.1 mmol/L (3.5-5.1); Protein, Total 7.5 g/dL (5.8-8.1); Sodium 135 mmol/L (136-145)
[2021-05-06] MEDS: Levothyroxine Sodium 88 MCG TAB PO SCH (05:45)
[2021-05-06] MEDS: Flecainide 50 MG TAB PO SCH ×2 (08:59→20:13)
[2021-05-06] MEDS: Metoprolol Tartrate 50 MG TAB PO SCH ×2 (08:59→20:13)
[2021-05-06] MEDS: Rosuvastatin 10 MG TAB PO SCH (08:59)
[2021-05-06] MEDS: Aspirin 81 mg Enteric Coated Tablet PO SCH (08:59)
[2021-05-06] MEDS: Enoxaparin Sodium 80 MG/0.8 ML SYRINGE SC SCH ×2 (08:59→20:14)
[2021-05-06] MEDS: Amlodipine 5 MG TAB PO SCH (08:59)
[2021-05-06] MEDS ORDERED: predniSONE 20 MG TAB PO SCH (12:30)
[2021-05-06] MEDS ORDERED: Midazolam HCl 2 mg/2 ml Vial ONE (13:10)
[2021-05-06] MEDS ORDERED: PROPOFOL 200 MG/20 ML VIAL ONE (13:43)
[2021-05-06] MEDS ORDERED: PROPOFOL 20 ML ONE (13:54)
[2021-05-06] MEDS: HYDROcodone/Acetaminophen 5/325 mg Tablet PO PRN (20:13)
[2021-05-06 20:55] LABS: Chlam.trachomatis by PCR,Urine Not Detected (NotDetected)
[2021-05-07 04:52] LABS: #Lymphocytes 1.9 thou/uL (1.20-3.40); #Monocytes 0.9 thou/uL (0.11-0.59); #Neutrophils 7.7 thou/uL (1.40-6.50); %Basophils 0.1 % (0.0-1.0); %Eosinophils 0.2 % (0.0-10.0); %Lymphocytes 18.3 % (21.0-51.0); %Monocytes 8.4 % (0.0-10.0); Hemoglobin 13.1 g/dL (14.0-18.0); Mean Corpuscular HGB CONC 34.4 g/dL (32.0-36.0); Mean Corpuscular Hemoglobin 32.6 pg (27.0-31.0); Mean Corpuscular Volume 94.8 fL (78.0-98.0); Platelet Count 326 thou/uL (130-400); RBC Distribution Width 11.1 % (11.5-14.5); Red Blood Cell (RBC) Count 4.01 mill/uL (4.70-6.10); White Blood Cell (WBC) Count 10.5 thou/uL (4.8-10.8)
[2021-05-07 05:08] LABS: ALT (SGPT) 60 U/L (8-55); AST (SGOT) 54 U/L (5-34); Alkaline Phosphatase 70 U/L (40-110); Anion Gap 11 mmol/L (10-20); BUN (Urea Nitrogen) 19 mg/dL (8.4-25.7); Bilirubin, Total 0.8 mg/dL (0.2-1.2); Calc. Creatinine Clearance 118 mL/min (70-130); Calcium 9.1 mg/dL (7.8-10.44); Carbon Dioxide 29 mmol/L (23-31); Chloride 100 mmol/L (98-107); Globulin 3.6 g/dL (2.4-3.5); Glucose 89 mg/dL (83-110); Potassium 3.5 mmol/L (3.5-5.1); Protein, Total 6.6 g/dL (5.8-8.1); Sodium 136 mmol/L (136-145)
[2021-05-07] MEDS: Levothyroxine Sodium 88 MCG TAB PO SCH (05:22)
[2021-05-07] MEDS: HYDROcodone/Acetaminophen 5/325 mg Tablet PO PRN ×2 (08:39→19:58)
[2021-05-07] MEDS: Amlodipine 5 MG TAB PO SCH (08:40)
[2021-05-07] MEDS: Rosuvastatin 10 MG TAB PO SCH (08:40)
[2021-05-07] MEDS: Flecainide 50 MG TAB PO SCH ×2 (08:40→20:00)
[2021-05-07] MEDS: Aspirin 81 mg Enteric Coated Tablet PO SCH (08:41)
[2021-05-07] MEDS: Enoxaparin Sodium 80 MG/0.8 ML SYRINGE SC SCH ×2 (08:41→20:00)
[2021-05-07] MEDS: Metoprolol Tartrate 50 MG TAB PO SCH ×2 (08:41→19:58)
[2021-05-07] MEDS: predniSONE 20 MG TAB PO SCH (08:41)
[2021-05-07] MEDS: Melatonin 3 MG TAB PO PRN (19:58)
[2021-05-08] MEDS: HYDROcodone/Acetaminophen 5/325 mg Tablet PO PRN ×2 (03:38→20:48)
[2021-05-08 04:48] LABS: #Lymphocytes 1.8 thou/uL (1.20-3.40); #Neutrophils 6.7 thou/uL (1.40-6.50); %Basophils 0.3 % (0.0-1.0); %Eosinophils 0.1 % (0.0-10.0); %Lymphocytes 18.6 % (21.0-51.0); Hemoglobin 12.7 g/dL (14.0-18.0); Mean Corpuscular HGB CONC 35.3 g/dL (32.0-36.0); Mean Corpuscular Hemoglobin 33.1 pg (27.0-31.0); Mean Corpuscular Volume 93.9 fL (78.0-98.0); Mean Platelet Volume 6.6 fL (7.4-10.4); Platelet Count 283 thou/uL (130-400); Red Blood Cell (RBC) Count 3.84 mill/uL (4.70-6.10); White Blood Cell (WBC) Count 9.5 thou/uL (4.8-10.8)
[2021-05-08 05:03] LABS: ALT (SGPT) 55 U/L (8-55); AST (SGOT) 40 U/L (5-34); Albumin 2.9 g/dL (3.4-4.8); Alkaline Phosphatase 68 U/L (40-110); Anion Gap 10 mmol/L (10-20); BUN (Urea Nitrogen) 17 mg/dL (8.4-25.7); Bilirubin, Total 0.6 mg/dL (0.2-1.2); Calc. Creatinine Clearance 123 mL/min (70-130); Calcium 8.1 mg/dL (7.8-10.44); Carbon Dioxide 28 mmol/L (23-31); Chloride 103 mmol/L (98-107); Globulin 2.8 g/dL (2.4-3.5); Glucose 94 mg/dL (83-110); Potassium 3.4 mmol/L (3.5-5.1); Protein, Total 5.7 g/dL (5.8-8.1); Sodium 138 mmol/L (136-145)
[2021-05-08 05:08] LABS: CRP (Inflammatory) 3.52 mg/dL (= or < 0.5)
[2021-05-08 05:09] LABS: Phosphorus 3.1 mg/dL (2.3-4.7); Uric Acid 5.1 mg/dL (3.5-7.2)
[2021-05-08] MEDS ORDERED: Potassium Chloride 20 MEQ TAB PO SCH (06:15)
[2021-05-08] MEDS: Levothyroxine Sodium 88 MCG TAB PO SCH (06:17)
[2021-05-08] MEDS: Amlodipine 5 MG TAB PO SCH (10:01)
[2021-05-08] MEDS: Enoxaparin Sodium 80 MG/0.8 ML SYRINGE SC SCH ×2 (10:01→20:48)
[2021-05-08] MEDS: Cholecalciferol 1,000 UNITS (25 MCG) TAB PO SCH (10:02)
[2021-05-08] MEDS: predniSONE 20 MG TAB PO SCH (10:02)
[2021-05-08] MEDS: Aspirin 81 mg Enteric Coated Tablet PO SCH (10:02)
[2021-05-08] MEDS: Flecainide 50 MG TAB PO SCH ×2 (10:02→20:51)
[2021-05-08] MEDS: Metoprolol Tartrate 50 MG TAB PO SCH ×2 (10:02→20:51)
[2021-05-08] MEDS: Rosuvastatin 10 MG TAB PO SCH (10:02)
[2021-05-08] MEDS: Melatonin 3 MG TAB PO PRN (20:51)
[2021-05-09] MEDS: HYDROcodone/Acetaminophen 5/325 mg Tablet PO PRN ×2 (01:05→05:46)
[2021-05-09] MEDS: Levothyroxine Sodium 88 MCG TAB PO SCH (05:47)
[2021-05-09] MEDS ORDERED: hydrALAZINE 20 MG/ML VIAL SLOW IVP PRN (06:23)
[2021-05-09] MEDS: predniSONE 20 MG TAB PO SCH (08:52)
[2021-05-09] MEDS: Metoprolol Tartrate 50 MG TAB PO SCH ×2 (08:53→21:27)
[2021-05-09] MEDS: Cholecalciferol 1,000 UNITS (25 MCG) TAB PO SCH (08:53)
[2021-05-09] MEDS: Aspirin 81 mg Enteric Coated Tablet PO SCH (08:53)
[2021-05-09] MEDS: Rosuvastatin 10 MG TAB PO SCH (08:54)
[2021-05-09] MEDS: Enoxaparin Sodium 80 MG/0.8 ML SYRINGE SC SCH (08:54)
[2021-05-09] MEDS: Flecainide 50 MG TAB PO SCH ×2 (08:54→21:27)
[2021-05-09] MEDS: Amlodipine 10 MG TAB PO SCH (08:56)
[2021-05-09 13:51] LABS: ALT (SGPT) 66 U/L (8-55); AST (SGOT) 45 U/L (5-34); Albumin 3.1 g/dL (3.4-4.8); Alkaline Phosphatase 71 U/L (40-110); Anion Gap 12 mmol/L (10-20); BUN (Urea Nitrogen) 13 mg/dL (8.4-25.7); Bilirubin, Total 0.6 mg/dL (0.2-1.2); Calc. Creatinine Clearance 101 mL/min (70-130); Calcium 8.7 mg/dL (7.8-10.44); Carbon Dioxide 23 mmol/L (23-31); Chloride 103 mmol/L (98-107); Globulin 3.6 g/dL (2.4-3.5); Glucose 160 mg/dL (83-110); Potassium 4.2 mmol/L (3.5-5.1); Protein, Total 6.7 g/dL (5.8-8.1); Sodium 134 mmol/L (136-145)
[2021-05-09] MEDS ORDERED: Hydrochlorothiazide 25 MG TAB PO SCH (14:00)
[2021-05-09 14:06] LABS: #Basophils 0.1 thou/uL (0.0-0.2); #Lymphocytes 0.9 thou/uL (1.20-3.40); #Monocytes 0.2 thou/uL (0.11-0.59); #Neutrophils 10.1 thou/uL (1.40-6.50); %Basophils 0.5 % (0.0-1.0); %Eosinophils 0.1 % (0.0-10.0); %Lymphocytes 7.8 % (21.0-51.0); %Monocytes 1.8 % (0.0-10.0); %Neutrophils 89.8 % (42.0-75.0); Hemoglobin 13.5 g/dL (14.0-18.0); Mean Corpuscular HGB CONC 32.3 g/dL (32.0-36.0); Mean Corpuscular Hemoglobin 30.7 pg (27.0-31.0); Mean Platelet Volume 6.8 fL (7.4-10.4); Platelet Count 387 thou/uL (130-400); RBC Distribution Width 11.1 % (11.5-14.5); Red Blood Cell (RBC) Count 4.39 mill/uL (4.70-6.10); White Blood Cell (WBC) Count 11.2 thou/uL (4.8-10.8)
[2021-05-09] MEDS: Apixaban 5 MG TAB PO SCH (21:27)
[2021-05-10] MEDS: Levothyroxine Sodium 88 MCG TAB PO SCH (06:37)
[2021-05-10] MEDS: HYDROcodone/Acetaminophen 5/325 mg Tablet PO PRN ×2 (06:37→14:09)
[2021-05-10 09:10] LABS: #Basophils 0.1 thou/uL (0.0-0.2); #Eosinphils 0.1 thou/uL (0.0-0.7); #Monocytes 1.2 thou/uL (0.11-0.59); #Neutrophils 10.2 thou/uL (1.40-6.50); %Basophils 0.4 % (0.0-1.0); %Eosinophils 0.4 % (0.0-10.0); %Lymphocytes 14.6 % (21.0-51.0); %Monocytes 8.7 % (0.0-10.0); %Neutrophils 75.9 % (42.0-75.0); Hemoglobin 13.8 g/dL (14.0-18.0); Mean Corpuscular HGB CONC 32.6 g/dL (32.0-36.0); Mean Corpuscular Hemoglobin 31.1 pg (27.0-31.0); Mean Corpuscular Volume 95.5 fL (78.0-98.0); Mean Platelet Volume 6.4 fL (7.4-10.4); Platelet Count 366 thou/uL (130-400); RBC Distribution Width 11.2 % (11.5-14.5); Red Blood Cell (RBC) Count 4.43 mill/uL (4.70-6.10); White Blood Cell (WBC) Count 13.4 thou/uL (4.8-10.8)
[2021-05-10] MEDS: predniSONE 20 MG TAB PO SCH (09:59)
[2021-05-10] MEDS: Flecainide 50 MG TAB PO SCH ×2 (10:00→21:28)
[2021-05-10] MEDS: Cholecalciferol 1,000 UNITS (25 MCG) TAB PO SCH (10:00)
[2021-05-10] MEDS: Metoprolol Tartrate 50 MG TAB PO SCH ×2 (10:00→21:28)
[2021-05-10] MEDS: Apixaban 5 MG TAB PO SCH ×2 (10:00→21:28)
[2021-05-10] MEDS: Amlodipine 10 MG TAB PO SCH (10:01)
[2021-05-10] MEDS: Rosuvastatin 10 MG TAB PO SCH (10:01)
[2021-05-10] MEDS: Aspirin 81 mg Enteric Coated Tablet PO SCH (10:01)
[2021-05-10] MEDS: Hydrochlorothiazide 25 MG TAB PO SCH (10:01)
[2021-05-11] MEDS: Levothyroxine Sodium 88 MCG TAB PO SCH (05:57)
[2021-05-11] MEDS: Cholecalciferol 1,000 UNITS (25 MCG) TAB PO SCH (09:32)
[2021-05-11] MEDS: Aspirin 81 mg Enteric Coated Tablet PO SCH (09:32)
[2021-05-11] MEDS: Rosuvastatin 10 MG TAB PO SCH (09:32)
[2021-05-11] MEDS: Hydrochlorothiazide 25 MG TAB PO SCH (09:32)
[2021-05-11] MEDS: Metoprolol Tartrate 50 MG TAB PO SCH ×2 (09:32→20:34)
[2021-05-11] MEDS: Flecainide 50 MG TAB PO SCH ×2 (09:32→20:35)
[2021-05-11] MEDS: predniSONE 20 MG TAB PO SCH (09:33)
[2021-05-11] MEDS: Amlodipine 10 MG TAB PO SCH (09:33)
[2021-05-11] MEDS: Apixaban 5 MG TAB PO SCH ×2 (09:33→20:34)
[2021-05-11 09:42] LABS: #Eosinphils 0.1 thou/uL (0.0-0.7); #Lymphocytes 2.3 thou/uL (1.20-3.40); #Neutrophils 11.9 thou/uL (1.40-6.50); %Basophils 0.1 % (0.0-1.0); %Eosinophils 0.3 % (0.0-10.0); %Lymphocytes 14.8 % (21.0-51.0); %Monocytes 6.6 % (0.0-10.0); %Neutrophils 78.1 % (42.0-75.0); Hemoglobin 14.4 g/dL (14.0-18.0); Mean Corpuscular HGB CONC 33.7 g/dL (32.0-36.0); Mean Corpuscular Hemoglobin 31.5 pg (27.0-31.0); Mean Corpuscular Volume 93.4 fL (78.0-98.0); Mean Platelet Volume 6.3 fL (7.4-10.4); Platelet Count 431 thou/uL (130-400); RBC Distribution Width 11.2 % (11.5-14.5); Red Blood Cell (RBC) Count 4.58 mill/uL (4.70-6.10); White Blood Cell (WBC) Count 15.3 thou/uL (4.8-10.8)
[2021-05-11] MEDS: HYDROcodone/Acetaminophen 5/325 mg Tablet PO PRN (11:41)
[2021-05-11] MEDS: Melatonin 3 MG TAB PO PRN (20:35)
[2021-05-12] MEDS: Levothyroxine Sodium 88 MCG TAB PO SCH (05:43)
[2021-05-12 08:25] LABS: #Basophils 0.1 thou/uL (0.0-0.2); #Eosinphils 0.1 thou/uL (0.0-0.7); #Lymphocytes 3.2 thou/uL (1.20-3.40); #Monocytes 0.9 thou/uL (0.11-0.59); #Neutrophils 8.8 thou/uL (1.40-6.50); %Basophils 0.6 % (0.0-1.0); %Eosinophils 0.5 % (0.0-10.0); %Lymphocytes 24.4 % (21.0-51.0); %Monocytes 7.2 % (0.0-10.0); %Neutrophils 67.4 % (42.0-75.0); Hemoglobin 14.5 g/dL (14.0-18.0); Mean Corpuscular HGB CONC 33.7 g/dL (32.0-36.0); Mean Corpuscular Hemoglobin 31.7 pg (27.0-31.0); Mean Corpuscular Volume 94.3 fL (78.0-98.0); Mean Platelet Volume 6.5 fL (7.4-10.4); Platelet Count 413 thou/uL (130-400); RBC Distribution Width 11.3 % (11.5-14.5); Red Blood Cell (RBC) Count 4.56 mill/uL (4.70-6.10)
[2021-05-12] MEDS: Flecainide 50 MG TAB PO SCH ×2 (08:54→21:22)
[2021-05-12] MEDS: Amlodipine 10 MG TAB PO SCH (08:54)
[2021-05-12] MEDS: Apixaban 5 MG TAB PO SCH ×2 (08:54→21:22)
[2021-05-12] MEDS: Cholecalciferol 1,000 UNITS (25 MCG) TAB PO SCH (08:54)
[2021-05-12] MEDS: Hydrochlorothiazide 25 MG TAB PO SCH (08:54)
[2021-05-12] MEDS: predniSONE 20 MG TAB PO SCH (08:54)
[2021-05-12] MEDS: Rosuvastatin 10 MG TAB PO SCH (08:54)
[2021-05-12] MEDS: Aspirin 81 mg Enteric Coated Tablet PO SCH (08:54)
[2021-05-12] MEDS: Metoprolol Tartrate 50 MG TAB PO SCH ×2 (09:10→22:02)
[2021-05-12] MEDS: Melatonin 3 MG TAB PO PRN (21:23)
[2021-05-13] MEDS: Levothyroxine Sodium 88 MCG TAB PO SCH (05:43)
[2021-05-13] MEDS: Flecainide 50 MG TAB PO SCH (08:47)
[2021-05-13] MEDS: Aspirin 81 mg Enteric Coated Tablet PO SCH (08:47)
[2021-05-13] MEDS: Cholecalciferol 1,000 UNITS (25 MCG) TAB PO SCH (08:47)
[2021-05-13] MEDS: Hydrochlorothiazide 25 MG TAB PO SCH (08:47)
[2021-05-13] MEDS: Metoprolol Tartrate 50 MG TAB PO SCH (08:48)
[2021-05-13] MEDS: predniSONE 20 MG TAB PO SCH (08:48)
[2021-05-13] MEDS: Apixaban 5 MG TAB PO SCH (08:48)
[2021-05-13] MEDS: Rosuvastatin 10 MG TAB PO SCH (08:48)
[2021-05-13] MEDS: Amlodipine 10 MG TAB PO SCH (08:48)
[2021-05-13] MEDS: HYDROcodone/Acetaminophen 5/325 mg Tablet PO PRN (08:52)
[2021-05-13] MEDS: Metoprolol Tartrate 5 MG/5 ML VIAL IVP SCH ×2 (10:32→11:40)
[2021-05-13 11:48] VITALS: TEMP 97.7
[2021-05-13 13:39] VITALS: BP 137/74
== END 2021-05-13 13:57 | DRG 553 ==
LOC: ERS 11:02 → 2NO 14:55
PROVIDERS: ADMIT Internal Medicine; ATTEND Internal Medicine
PROC: 0W993ZZ Drainage of Right Pleural Cavity, Percutaneous Approach (ICD-10-PCS; principal; 2021-05-04)
PROC: 3E0U3BZ Introduction of Anesthetic Agent into Joints, Percutaneous Approach (ICD-10-PCS; 2021-05-04)
PROC: 5A2204Z Restoration of Cardiac Rhythm, Single (ICD-10-PCS; 2021-05-06)
DX: M10.9 Gout, unspecified (principal); Z20.822 Contact with and (suspected) exposure to COVID-19; G93.41 Metabolic encephalopathy; R65.10 Systemic inflammatory response syndrome (SIRS) of non-infectious origin without acute organ dysfunction; M13.0 Polyarthritis, unspecified; K74.60 Unspecified cirrhosis of liver; E80.6 Other disorders of bilirubin metabolism; E78.5 Hyperlipidemia, unspecified; K21.9 Gastro-esophageal reflux disease without esophagitis; I08.1 Rheumatic disorders of both mitral and tricuspid valves; E03.9 Hypothyroidism, unspecified; G40.909 Epilepsy, unspecified, not intractable, without status epilepticus; B19.20 Unspecified viral hepatitis C without hepatic coma; K76.0 Fatty (change of) liver, not elsewhere classified; I48.0 Paroxysmal atrial fibrillation; I44.1 Atrioventricular block, second degree; Z87.891 Personal history of nicotine dependence; Z90.49 Acquired absence of other specified parts of digestive tract; Z79.899 Other long term (current) drug therapy
CPT/HCPCS: 0240U; 36415; 36416; 51701; 70450; 71045; 76705; 80053; 80202; 81003; 81015; 82140; 82247; 82945; 83605; 83690; 83735; 83880; 84100; 84157; 84443; 84484; 84550; 84560; 85025; 85060; 85610; 85652; 86038; 86140; 86225; 87040; 87070; 87086; 87149; 87205; 87491; 87591; 89051; 89060; 92960; 93005; 93010; 93306; 93312; 96365; 96366; 96375; J0692; J1650; J2001; J2250; J2270; J2405; J2704; J2920; J3370; J3490; J7050; J7512

== ENCOUNTER 2021-07-15 08:57 | Outpatient (CLI) | payer OTHER | END 2021-07-15 08:58 | disposition home or self-care (01) | LOC: ULT 08:57 | PROVIDERS: ATTEND Internal Medicine Gastroenterology | DX: B18.2 Chronic viral hepatitis C (principal) | CPT/HCPCS: 76705 ==

== ENCOUNTER 2021-11-07 12:02 | Outpatient (CLI) | payer OTHER | END 2021-11-07 12:03 | disposition home or self-care (01) | LOC: RAD 12:02 | PROVIDERS: ATTEND Family Medicine | DX: M10.9 Gout, unspecified (principal); M19.071 Primary osteoarthritis, right ankle and foot; E78.2 Mixed hyperlipidemia | CPT/HCPCS: 36415; 80053; 80061; 84550; 85025 ==

== ENCOUNTER 2021-12-20 13:13 | Outpatient (CLI) | payer OTHER ==
[2021-12-20 14:09] LABS: #Eosinphils 0.1 10x3/uL (0.0-0.5); #Monocytes 0.9 10x3/uL (0.0-1.1); #Neutrophils 7.6 10x3/uL (1.5-8.4); %Basophils 0.3 % (0.0-2.0); %Eosinophils 0.7 % (0.0-6.0); %Lymphocytes 25.9 % (18.0-47.0); %Monocytes 7.7 % (0.0-10.0); %Neutrophils 65.1 % (40.0-75.0); Hemoglobin 13.7 g/dL (13.5-17.5); Mean Corpuscular HGB CONC 33.4 g/dL (32.0-36.0); Mean Corpuscular Hemoglobin 29.4 pg (27.0-33.0); Mean Platelet Volume 9.6 fl (7.4-10.4); Platelet Count 263 10x3/uL (150-450); RBC Distribution Width 15.2 % (11.5-14.5); Red Blood Cell (RBC) Count 4.66 10x6/uL (4.32-5.72); White Blood Cell (WBC) Count 11.6 10x3/uL (3.5-10.5)
[2021-12-20 14:12] LABS: Anion Gap 14 mmol/L (10-20); BUN (Urea Nitrogen) 15 mg/dL (8.4-25.7); Calc. Creatinine Clearance 0 mL/min (70-130); Calcium 9.2 mg/dL (7.8-10.44); Carbon Dioxide 27 mmol/L (23-31); Chloride 106 mmol/L (98-107); Estimated GFR 91; Glucose 90 mg/dL (83-110); Potassium 4.6 mmol/L (3.5-5.1); Sodium 142 mmol/L (136-145)
== END 2021-12-20 13:14 | disposition home or self-care (01) ==
LOC: LABBT 13:13
PROVIDERS: ATTEND Orthopaedic Surgery Hand Surgery
DX: Z01.818 Encounter for other preprocedural examination (principal); I48.91 Unspecified atrial fibrillation; Z20.822 Contact with and (suspected) exposure to COVID-19
CPT/HCPCS: 80048; 85025; 87811; 93005; 93010

== ENCOUNTER → 2021-12-23 | Day surgery (SDC) | payer OTHER ==
[2021-12-21 13:15] VITALS: BMI 27.0
[~2021-12-23] MED LIST: PROPOFOL 40 ML ONE
== END | disposition home or self-care (01) ==
LOC: SDC 10:29
PROVIDERS: ATTEND Internal Medicine Cardiovascular Disease
PROC: 5A2204Z Restoration of Cardiac Rhythm, Single (ICD-10-PCS; principal; 2021-12-23)
DX: I48.92 Unspecified atrial flutter (principal); I48.0 Paroxysmal atrial fibrillation; I35.0 Nonrheumatic aortic (valve) stenosis; I44.0 Atrioventricular block, first degree; M79.604 Pain in right leg; M79.605 Pain in left leg; Z79.01 Long term (current) use of anticoagulants; Z79.82 Long term (current) use of aspirin; Z79.890 Hormone replacement therapy; Z79.899 Other long term (current) drug therapy
CPT/HCPCS: 92960; 93005; 93010; J2704

== ENCOUNTER 2023-04-05 07:49 | Outpatient (CLI) | payer MEDICARE | END 2023-04-05 07:50 | disposition home or self-care (01) | LOC: BICULT 07:49 | PROVIDERS: ATTEND Internal Medicine Gastroenterology | DX: R41.3 Other amnesia (principal); K74.60 Unspecified cirrhosis of liver; B18.2 Chronic viral hepatitis C; J34.89 Other specified disorders of nose and nasal sinuses; G93.89 Other specified disorders of brain; I67.89 Other cerebrovascular disease; K76.89 Other specified diseases of liver; Z86.010 Personal history of colon polyps | CPT/HCPCS: 70551; 76705 ==